=== PATIENT | female | born 2005 | race Caucasian/White ===

== ENCOUNTER 2024-08-16 13:04 | Emergency (ER) | payer OTHER, SELFPAY ==
[2024-08-16 13:08] VITALS: BP 149/61; PULSE 129; RESP 18; TEMP 37.3; O2SAT 95; BMI 50.6
--- NOTE | 2024-08-16 13:32 | CRLHL7_ITS ---
For Patients: As a result of the Century Cures Act, medical imaging exams and procedure reports are released immediately into your electronic medical record. You may view this report before your referring provider. If you have questions, please contact your health care provider. INDICATION: Shortness of breath. TECHNIQUE: Chest 2 views. COMPARISON: None. FINDINGS: Cardiovascular and mediastinum: Heart size is normal. Unremarkable mediastinum. Lungs and pleural spaces: Lungs are clear. No sign of infiltrate or mass. No sign of pleural effusion. No pneumothorax. Bones and soft tissues: No significant findings. IMPRESSION: Negative chest. Dictated by Michael Her MD @ 08/16/2024 2:33:16 PM (Electronically Signed)
--- NOTE | 2024-08-16 13:36 | ED.GENADULT ---
HPI - General Adult General Chief complaint: Fever Stated complaint: fever, migraine, nausea Time Seen by Provider: 08/16/24 13:10 Source: patient Mode of arrival: ambulatory Limitations: no limitations History of Present Illness HPI narrative: 18-year-old female coming in today complaining of fever that started yesterday. States he has gotten as high as 104 and that mtlg-izu-rvlenig medications are not helping. Complains of a headache. Denies appetite changes, sore throat, neck pain, cough, chest pain, abdominal pain, rashes. Denies recent travel or sick contacts. Complains of increased urinary frequency, denies dysuria. Denies diarrhea or constipation. States that she does feel lightheaded. Denies vertiginous symptoms. Related Data Home Medications ?Medication ?Instructions ?Recorded ?Confirmed albuterol sulfate 90 mcg/actuation 1 inh inhalation Q4-6H PRN 08/16/24 08/16/24 aerosol inhaler bupropion HCl 300 mg 24 hr tablet, 300 mg PO DAILY 08/16/24 08/16/24 extended release cholecalciferol (vitamin D3) 25 25 mcg PO DAILY 08/16/24 08/16/24 mcg (1,000 unit) capsule ergocalciferol (vitamin D2) 1,250 50,000 unit PO QWEEK 08/16/24 08/16/24 mcg (50,000 unit) capsule propranolol 80 mg capsule,24 80 mg PO DAILY 08/16/24 08/16/24 hr,extended release sertraline 100 mg tablet 100 mg PO DAILY 08/16/24 08/16/24 trazodone 100 mg tablet 100 mg feeding tube QHS PRN 08/16/24 08/16/24 Allergies Allergy/AdvReac Type Severity Reaction Status Date / Time amphetamine (From Adderall) Allergy Unknown Verified 08/16/24 13:18 dextroamphetamine (From Allergy Unknown Verified 08/16/24 13:18 Adderall) Review of Systems Status of ROS: Reports: 10 or more systems reviewed and unremarkable except as noted in History and below [facility] Social History Smoking Status: Never smoker Do you use any of these nicotine containing products: Vaping Products Second hand tobacco smoke exposure: No How often do you have a drink containing alcohol: never AUDIT-C Alcohol total score: 0 Non-prescribed substance use: denies use Exam Narrative: Exam Narrative: Obese, well-developed patient in no acute distress. Alert and oriented. Answers questions appropriately. Mood and affect are appropriate. Thoughts are goal oriented and rational. No tangential or magical thinking noted. Patient speaks in full sentences without needing to catch her breath. For a virtual 1 2. HEENT: Normocephalic atraumatic. Pupils are equally round reactive to light. Extraocular muscles are intact. Conjunctivae are moist without any icterus noted. Moist mucous membranes. Posterior pharynx is normal. Neck is soft without any lymphadenopathy or thyromegaly. No masses are appreciated. Cardiovascular: Heart is regular rate and rhythm S1 and S2 are present without any murmurs. Lungs: Clear to auscultation bilaterally no wheezes rhonchi or rales are appreciated. Patient takes deep breaths without any discomfort. Abdomen: Soft and nontender nondistended with normal bowel sounds. No guarding or rebound. Difficult to assess for organomegaly secondary to body habitus. Extremities: Bilateral lower extremities are without edema. Skin: Well perfused without any obvious rashes. Const: Vital Signs, click to edit/add: Vital Signs - 24 hr 08/16/24 13:08 Temperature 99.2 F Pulse Rate [Right Pulse Oximeter] 129 H Respiratory Rate 18 Blood Pressure [Ri ght Forearm] 149/61 H Pulse Oximetry 95 Oxygen Delivery Me thod Room Air Course Course ED Course: Given the patient's pulse of 129, IV was established she was given a L of normal saline. No evidence of orthostatic dysfunction. Chest x-ray, read by me, did not show any acute pathology. Patient's pulse did come down after fluids. EKG, read by me, shows normal sinus rhythm with a pulse of 86. Her white cell count was slightly elevated with a WBC of 13.4. Chemistries are unremarkable. Urinalysis grossly positive for signs of infection. COVID and influenza swab is negative. [place] is negative. While in the ED patient received 1 g of IV Rocephin. Vital Signs Vital signs: Initial Vital Signs Temperature 99.2 F 08/16/24 13:08 Temperature Source Temporal Artery Scan 08/16/24 13:08 Pulse Rate 129 H 08/16/24 13:08 Pulse Rhythm Regular 08/16/24 13:08 Pulse Strength 3+ Normal 08/16/24 13:08 Respiratory Rate 18 08/16/24 13:08 Blood Pressure 149/61 H 08/16/24 13:08 Blood Pressure Mean 90 08/16/24 13:08 Blood Pressure Position Sitting 08/16/24 13:08 Pulse Oximetry 95 08/16/24 13:08 Oxygen Delivery Method Room Air 08/16/24 13:08 Vital Signs Temperature 99.2 F 08/16/24 13:08 Pulse Rate 129 H 08/16/24 13:08 Respiratory Rate 18 08/16/24 13:08 Blood Pressure 149/61 H 08/16/24 13:08 Pulse Oximetry 95 08/16/24 13:08 Oxygen Delivery Method Room Air 08/16/24 13:08 Temperature 99.2 F 08/16/24 13:08 Pulse Rate 129 H 08/16/24 13:08 Respiratory Rate 18 08/16/24 13:08 Blood Pressure 149/61 H 08/16/24 13:08 Pulse Oximetry 95 08/16/24 13:08 Oxygen Delivery Method Room Air 08/16/24 13:08 Medications Administered Medications: Discontinued Medications Generic Name Dose Route Start Last Admin Trade Name Freq PRN Reason Stop Dose Admin Sodium Chloride 1,000 mls @ 1,000 mls/hr 08/16/24 13:45 08/16/24 13:53 0.9 % Sodium Chloride 1000 Ml IV 08/16/24 14:44 1,000 mls/hr .Q1H MARY ANN Administration Ceftriaxone Sodium 1 gm/ 100 mls @ 200 mls/hr 08/16/24 15:06 08/16/24 15:13 Sodium Chloride IVPB 08/16/24 15:07 200 mls/hr ONCE ONE Administration Medical Decision Making MDM Narrative Medical decision making narrative: 18-year-old female with urinary tract infection. Status post 1 dose of Rocephin. Will treat with Cipro outpatient. Patient recommended follow-up with her primary care provider this coming week. Lab Data Lab results reviewed: Yes I reviewed the patient's lab results Labs: Lab Results 08/16/24 08/16/24 08/16/24 Range/Units 13:30 13:45 14:36 WBC 13.04 H (4.50-11.00) K/uL RBC 4.31 (4.00-5.20) m/uL Hgb 12.4 (12.0-16.0) gm/dL Hct 37.3 (33.0-51.0) % MCV 87 (80-100) fL MCH 29 (26-34) pg MCHC 33 (32-36) gm/dL RDW Coeff of Mirza 12.8 (11.5-15.5) % Plt Count 228 (140-440) K/uL Neut % (Auto) 76.8 H (42.0-72.0) % Lymph % (Auto) 9.7 L (20-44) % [place] % (Auto) 13.0 H (0.0-11.0) % Eos % (Auto) 0.0 (0.0-7.0) % Baso % (Auto) 0.2 (0.0-3.0) % Neut # (Auto) 10.00 H (1.7-7.0) K/uL Lymph # (Auto) 1.30 (0.90-2.90) K/uL [place] # (Auto) 1.70 H (0.00-0.90) K/UL Eos # (Auto) 0.00 (0.00-0.50) K/uL Baso # (Auto) 0.00 (0.00-0.30) K/uL Abs Immat Gran (auto) 0.00 (0.00-0.30) K/uL Imm/Tot Granulo (auto) 0.3 % Sodium 134 L (135-149) mmol/L Potassium 3.7 (3.6-5.1) mmol/L Chloride 100 (96-114) mmol/L Carbon Dioxide 24 (20-32) mmol/L Anion Gap 10 (7-15) mEq/L BUN 11 (5-24) mg/dL Creatinine 1.0 (0.5-1.5) mg/dL Estimated Creat Clear 100.30 Estimated GFR 83 ml/min Glucose 116 H (60-115) mg/dL Lactate 1.3 (0.5-1.9) mmol/L Calcium 9.1 (8.4-10.6) mg/dL Urine Color Dark yellow (Yellow) Urine Appearance Cloudy A (Clear) Urine pH 7.0 (5.0-8.5) Ur Specific [place] 1.015 (1.000-1.030) Urine Protein 2+ A (Negative) Urine Glucose (UA) Negative (Negative) Urine Ketones Negative (Negative) Urine Blood 2+ A (Negative) Urine Nitrite Negative (Negative) Urine Bilirubin 1+ A (Negative) Urine Urobilinogen >=8.0 A (0.2-1.0) Ur Leukocyte Esterase 3+ A (Negative) Urine RBC 10-25 A (0-2) Urine WBC >100 A (0-5) Ur Squamous Epith Cells None (None-Few) Urine Bacteria Many A (None) Urine HCG, Qual Negative (Negative) SARS-CoV-2 (PCR) Negative SARS-CoV-2 (Negative) Monoscreen Negative (Negative) Influenza Type A (PCR) Negative PCR FLU A (Negative) Influenza Type B (PCR) Negative PCR FLU B (Negative) Imaging Data Chest x-ray: Attestation: I have reviewed the pertinent imaging results. Radiologist's impression: Chest 2 views. COMPARISON: None. FINDINGS: Cardiovascular and mediastinum: Heart size is normal. Unremarkable mediastinum. Lungs and pleural spaces: Lungs are clear. No sign of infiltrate or mass. No sign of pleural effusion. No pneumothorax. Bones and soft tissues: No significant findings. IMPRESSION: Negative chest. ECG Data Attestation: I personally reviewed and interpreted this ECG as follows: Discharge Plan Discharge Clinical Impression: Urinary tract infection Patient Disposition: Home, Self-Care Condition: Stable Additional Instructions: Take all antibiotics as prescribed. Follow-up with your primary care provider in 48-72 hours. Return to the emergency department if you feel like you are getting worse instead of better. Prescriptions: No Action bupropion HCl 300 mg tablet extended release 24 hr 300 mg PO DAILY sertraline 100 mg tablet 100 mg PO DAILY trazodone 100 mg tablet 100 mg feeding tube QHS PRN cholecalciferol (vitamin D3) 25 mcg (1,000 unit) capsule 25 mcg PO DAILY albuterol sulfate 90 mcg/actuation HFA aerosol inhaler 1 inh inhalation Q4-6H PRN ergocalciferol (vitamin D2) 1,250 mcg (50,000 unit) capsule 50,000 unit PO QWEEK propranolol 80 mg capsule,extended release 24 hr 80 mg PO DAILY Follow Up/Referrals: Provider,Not a Local [Primary Care Provider] - Stand Alone Forms: 99Presentsth Info Instructions
[2024-08-16] MEDS: 0.9 % SODIUM CHLORIDE 1000 ml 1,000 ML IV (13:53)
[2024-08-16 13:54] LABS: Lactate* 1.3 mmol/L (0.5-1.9)
[2024-08-16 13:57] LABS: Basophils Percent Auto 0.2 % (0.0-3.0); Hematocrit 37.3 % (33.0-51.0); Hemoglobin* 12.4 gm/dL (12.0-16.0); Immature Granulocytes Pct Auto 0.3 %; Lymphocytes Percent Auto 9.7 % (20-44); Mean Corpuscular HGB Conc 33 gm/dL (32-36); Mean Corpuscular Hemoglobin 29 pg (26-34); Mean Corpuscular Volume 87 fL (80-100); Neutrophils Percent Auto 76.8 % (42.0-72.0); Platelet Count* 228 K/uL (140-440); RDW Coefficient of Variation % 12.8 % (11.5-15.5); Red Blood Count 4.31 m/uL (4.00-5.20); White Blood Count* 13.04 K/uL (4.50-11.00)
[2024-08-16 14:00] LABS: Slide Review Reflex No
[2024-08-16 14:07] LABS: Mono Screen* Negative (Negative)
--- OUTSIDE RECORDS SUMMARY | 2024-08-16 14:10 | XMS_ITS | Encounter Summary ---
Author Organization [facility] Address [address] [place] [address] Care Team Providers Care Farm Facility Manager Name Role Phone Alka Desai APRN, C.N.P., D.N.P. Primary Car e Provider Reason for Referral * Outpatient (Routine) - Authorized Specialty Diagnoses / Procedures Referred By Contac t Referred To Contact Family Medicine Alka Desai APRN, C.N.P., D.N.P. [address] [place] [address] Phone: tel: fax: [facility] Referral ID Status Reason Start Date Expiration Date V isits Requested Visits Authorized [id number] Authorized 08/06/2024 02/05/2026 1 1 Scheduling Instructions Recheck Reason for Visit * Reason Comments Follow-up * Outpatient (Routine) - Closed Specialty Diagnoses / Procedures Referred By Contac t Referred To Contact Family Medicine Alka Desai APRN, C.N.P., D.N.P. [address] [place] [address] Phone: tel: fax: [facility] Region Referral ID Status Reason Start Date Expiration Date Visits Re quested Visits Authorized [id number] Closed 06/30/2024 12/30/2025 1 1 Encounter Details Date Type Department Care Team (Late st Contact Info) Description 08/06/2024 9:00 AM CDT Telemedicine Department of Family Medicine in [place], [place] [address] [place] [address] Alka Desai APRN, C.N.P., D.N.P. [address] [place] [address] Anxiety Generalized Disorder (Primary Dx); Major Depressive Disorder, Recurrent, Unspecified; Insomnia Social History Tobacco Use Types Packs/Day Years Used Date Smoking Tobacco: Never Smokeless Tobacco: Never Alcohol Use Standard Drinks/Week Comments Not Currently 0 (1 standard drink = 0.6 oz pur e alcohol) [facility] Utilities Answer Date Recorded In the past 12 months has e [employer], gas, oil, or water [employer] threatened to shut off services in your home? No 05/18/2024 Overall Financial Resource Strain (CARDIA) Answe r Date Recorded How hard is it for you to pa y for the very basics like food, housing, medical care, and heating? Not hard at all 04/22/2023 PHQ-2 Answer Date Recorded PHQ-2 Score 0 08/06/2024 Exercise Vital Sign Answer Date Recorde d On average, how many days pe r week do you engage in moderate to strenuous exercise (like a brisk walk)? 7 days 05/18/2024 On average, how many minutes do you engage in exercise at this level? 90 min 05/18/2024 Hunger Vital Sign Answer Date Recorded Within the past 12 months, y ou worried that your food would run out before you got the money to buy more. Sometimes true Within the past 12 months, t he food you bought just didn't last and you didn't have money to get more. Sometimes true 10/2024 PRAPARE - Transportation Answer Date Re corded In the past 12 months, has l ack of transportation kept you from medical appointments or from getting medications? No 10/2024 In the past 12 months, has l ack of transportation kept you from meetings, work, or from getting things needed for daily living? No 05/18/2024 Depression Answer Date Recor ded PHQ-9 Total Score (max 27) 1 08/06 Nutrition Answer Date Recorded On average, how many serving s of fruits and vegetables do you eat per day (serving size is equal to 1 cup or approximately the size of a tennis ball)? 0-2 05/18/2024 Dental Answer Date Recorded Dental: Regular Dentist No 04/22/20 23 Employment Answer Date Recorded Employment status Employed and actively working without restrictions 05/18/2024 Housing Stability Answer Date Recorded What is your living situation today? I have a [facility] place to live 05/18/2024 Comments Unknown Sex and Gender Information Value Date Recorded Sex Assigned at Female 04/22/2023 3:38 PM [employer] Legal Sex Female 6:09 AM [employer] MANA[employer]SP[employer]ER Gender Identity Female 04/22/2023 3:38 PM [employer]NA[employer] Sexual Orientation Choose not to disclose 2022 3:38 PM [employer]NA[employer]ING [employer]SP[employer]ER documented as of this encounter Progress Notes * Alka Desai APRN, C.N.P., D.N.P. - 08/06/2024 9:00 AM CDT SUBJECTIVE CHIEF COMPLAINT / REASON FOR VISIT No chief complaint on file. HISTORY OF PRESENT ILLNESS Santosh Clemente is a 18 y.o. female who presents via video visit for follow- up evaluation of depression anxiety symptoms. At our last visit the patient increased her bupropion from 150 milligrams daily to 300 milligrams daily. We maintain the same dose of sertraline at 100 milligrams daily. The patient reports good improvement with her depression and anxiety symptoms. PHQ-9 and keshia seven are as follows: The following screenings were completed: KESHIA-7 Total Score (max 21): 2 PHQ-9 Total Score (max 27): 1 (08/06/24 0857) PHQ-2 Score: 0 She also restarted trazodone as needed at bedtime with an increased dose from 50 milligrams to 100 milligrams by mouth at bedtime as needed. Patient reports the higher dose has lead to better sleep quality. She is otherwise compliant with all of her medications and has no acute complaints today. Consult conducted via real-time audio/video technology by Alka Desai APRN, C.NVeronika, AbdiazizN.PLexie in [facility] to the patient in Patient's Home The following portions of the patient's history were reviewed and updated as appropriate: allergies, current medications, family history, medical history, social history, surgical history and problemlist. PROBLEM LIST: Problem List[1] current medications[2] REVIEW OF SYSTEMS All other systems reviewed and are negative. OBJECTIVE There were no vitals filed for this visit. PHYSICAL EXAMINATION Physical exam is limited due to the nature of video visits. ASSESSMENT / PLAN #1 Anxiety Generalized Disorder #2 Major Depressive Disorder, Recurrent, Unspecified The patient has seen marked improvement with the combination of sertraline and bupropion. Symptoms of depression and anxiety are well controlled. She will continue with bupropion at 300 milligrams daily and sertraline at 100 milligrams daily. Recheck in three months or sooner with any new or worsening symptoms: Family Medicine office visit (clinic); Future; Expected date: 11/06/2024 #3 Insomnia Patient reports improved sleep with the dose increase from trazodone 50 milligrams at night to 100 milligrams at bedtime as needed. She will continue with his current dose. Recheck at visit in three months. Ready to learn, no apparent learning barriers were identified; learning preferences include listening. Explained diagnosis and treatment plan; patient/child/last waxer expressed understanding of the content. [1] Patient Active Problem List Diagnosis Asthma Mild Intermittent (HCC) Edema Leg Multifactorial Anxiety Generalized Disorder Migraine Headache Pain Joint Insomnia Hypertriglyceridemia Deficiency Vitamin D Major Depressive Disorder, Recurrent, Unspecified [2] Current Outpatient Medications Medication Sig albuterol (ProAir HFA) 90 mcg/actuation inhaler Inhale 2 puffs 4 (four) times a day as needed for wheezing. ovhqbxo-rxdyotosspxul-nzmdsrsc (EXCEDRIN MIGRAINE) 250-250-65 mg per tablet Take 1 tablet by mouth every 6 (six) hours as needed for pain. (Patient not taking: Reported on 05/22/2024) buPROPion XL (Wellbutrin XL) 150 mg 24 hr tablet Take 2 tablets (300 mg total) by mouth every morning. cholecalciferol, vitamin D3, (cholecalciferol) 25 mcg (1,000 Unit) tablet Take 1 tablet (25 mcg total) by mouth daily. DME [employer] DME Order [facility] (Patient not taking: Reported on 05/22/2024) ergocalciferol (DrisdoL) 50,000 Unit capsule Take 1 capsule (50,000 Units total) by mouth once a week. mometasone (Asmanex) 220 mcg/ actuation (120) inhaler Inhale 1 puff at bedtime. Rinse mouth with water after use to reduce aftertaste and incidence of candidiasis. Do not swallow. propranoloL (InderaL LA) 80 mg 24 hr capsule Take 1 capsule (80 mg total) by mouth daily. sertraline (Zoloft) 100 mg tablet Take 1 tablet (100 mg total) by mouth daily. Take 1/2 tablet daily for 2 weeks then increase to 1 tablet daily. traZODone (DesyreL) 50 mg tablet Take 2 tablets (100 mg total) by mouth at bedtime as needed for sleep. documented in this encounter Plan of Treatment Upcoming Encounters Date Type Department Care Team (Late st Contact Info) Description 08/26/2024 11:30 AM CDT Appointment Department of Laboratory Medicine in [place], [place] [address] [place] [phone] Alka Desai APRN, C.N.P., D.N.P. [address] [place] [address] 11/11/2024 9:15 AM CDT Comprehensive Visit Department of Sleep Medicine in [place], [place] [address] [place] [id number] Annabel Coronel M.D. [address] [place] [address] 11/12/2024 9:00 AM CDT Telemedicine Department of Family Medicine in [place], [place] [address] [place] [address] [place] [address] Alka Desai APRN, C.N.P., D.N.P. [address] [place] [address] Scheduled Referrals Name Type Priority Associated Diagnoses Orde r Schedule Family Medicine office visit (clinic) Outpatient Referral Routine Expected: 11/06/2024, Expires: 11/06/2025 documented as of this encounter Visit Diagnoses Diagnosis Anxiety Generalized Disorder- Primary Major Depressive Disorder, Recurrent, Unspecified Insomnia documented in this encounter Additional Health Concerns Assessment Noted Time PHQ-9 Depression Total Score: 1 08/07/19 25 8:57 AM CDT documented as of this encounter Care Teams Farm Facility Manager Relationship Specialty Start Date End Date Alka Desai APRN, C.N.P., D.N.P. [address] [place] [address] PCP - General Family Medicine 09/07/20 documented as of this encounter
--- OUTSIDE RECORDS SUMMARY | 2024-08-16 14:10 | XMS_ITS | Clinical Summary ---
Author Organization [facility] Address [address] [place] [address] Care Team Providers Care Hazardous Materials Waste Technician Name Role Phone Alka Desai APRN, C.N.P., D.N.P. Primary Car e Provider Source Comments Patient records contain information from all sites at [facility]. For routine questions regarding patient records, call [phone] during business hours, M-F 8:00 AM - 5:00 PM Central Time. Record requests for emergency care only can be directed to [phone] at any time.[facility] Allergies Active Allergy Reactions Criticality Noted Date Comments Dextroamphetamine-Am phetamine Other (see comments) Medium 07/01/2013 Red blotches on skin Medications * This document contains information received from the source organization and may not represent a complete record from that organization. aspirin-acetaminop hen-caffeine (EXCEDRIN MIGRAINE) 250-250-65 mg per tablet Take 1 tablet by mouth every 6 (six) hours as needed for pain. Active DME Gradient compression garments & suppliesIndication s:Severe Obesity Pediatric Body Mass Index Greater Than Or Equal To 99 Percentile Age 2 Or Older (HCC),Fracture Tibia Shaft Closed Subsequent With Routine Healing Left,Edema Leg Multifactorial DME Order [facility] 3 Units 3 04/20/20 20 Active Additional Information Patient not taking.Reported on 05/22/2024 albuterol (ProAir HFA) 90 mcg/actuation inhalerIndications :Asthma Mild Intermittent (HCC) Inhale 2 puffs 4 (four) times a day as needed for wheezing. 12 g 3 05/22/19 25 Active ergocalciferol (DrisdoL) 50,000 Unit capsuleIndications :Deficiency Vitamin D Take 1 capsule (50,000 Units total) by mouth once a week. 12 capsule 3 05/22/19 25 Active mometasone (Asmanex) 220 mcg/ actuation (120) inhalerIndications :Asthma Mild Intermittent (HCC) Inhale 1 puff at bedtime. Rinse mouth with water after use to reduce aftertaste and incidence of candidiasis. Do not swallow. 1 each 11 05/22/19 25 Active propranoloL (InderaL LA) 80 mg 24 hr capsuleIndications :Migraine Headache Take 1 capsule (80 mg total) by mouth daily. 90 capsule 05/22/19 25 Active sertraline (Zoloft) 100 mg tabletIndications: Depression Anxiety Take 1 tablet (100 mg total) by mouth daily. Take 1/2 tablet daily for 2 weeks then increase to 1 tablet daily. 90 tablet 3 05/22/19 25 026 Active cholecalciferol, vitamin D3, (cholecalciferol) 25 mcg (1,000 Unit) tablet Take 1 tablet (25 mcg total) by mouth daily. 90 tablet 3 05/29/19 25 Active buPROPion XL (Wellbutrin XL) 150 mg 24 hr tabletIndications: Depression Anxiety Take 2 tablets (300 mg total) by mouth every morning. 180 tablet 3 06/30/19 25 026 Active traZODone (DesyreL) 50 mg tabletIndications: Insomnia Take 2 tablets (100 mg total) by mouth at bedtime as needed for sleep. 180 tablet 3 06/30/19 25 026 Active Active Problems Problem Noted Date Diagnosed Date Major Depressive Disorder, Recurrent, Unspecifie d 08/06/2024 Deficiency Vitamin D 05/28/2024 Insomnia 05/25/2024 Hypertriglyceridemia 05/25/2024 Pain Joint 05/18/2023 Migraine Headache 05/26/2020 Edema Leg Multifactorial 04/21/2020 Anxiety Generalized Disorder 04/21/2020 Asthma Mild Intermittent 03/25/2018 Resolved Problems Problem Noted Date Diagnosed Date Resolved Date Mood Disorder 05/26/2020 05/22/2024 Fracture Tibia Shaft Closed Subsequent With Routine Healing Left 09/02/2019 06/29/2020 Severe Obesity Pediatric Bod y Mass Index Greater Than Or Equal To 99 Percentile Age 2 Or Older 2015 05/22/2024 Overview (10/02/2016): Severe Obesity Pediatric (BMI>=99 Percentile Age 2 Or Older) Reactive Attachment Disorder Childhood 2015 05/26/2020 Encounters Date Type Department Care Team Description 08/06/2024 9:00 AM CDT Telemedicine Department of Family Medicine in [place] [address] [address] [facility] [place] [address] Alka Desai, RADHA, C.N.P., D.N.P. Anxiety Generalized Disorder (Primary Dx); Major Depressive Disorder, Recurrent, Unspecified; Insomnia 06/30/2024 4:00 PM CEMENT TRUCK DRIVER Telemedicine Department of Family [facility] in [place] [address] [address] [place] [address] Alka Desai APRN, C.N.P., D.N.P. Depression Anxiety (Primary Dx); Insomnia; Deficiency Vitamin D; Migraine Headache 05/28/2024 Orders Only Department of Family Medicine in [place] [address] [address] [place] [phone] Alka Desai APRN, C.N.P., D.N.P. Deficiency Vitamin D (Primary Dx) 05/22/2024 3:45 PM CEMENT TRUCK DRIVER Comprehensive Visit Department of Family [facility] in [place] [address] [address] [place] [phone] Alka Desai APRN, C.N.P., D.N.P. General Medical Examination Adult (Primary Dx); Asthma Mild Intermittent (HCC); Hypertriglyceridemia ; Depression Anxiety; Deficiency Vitamin D; Insomnia; Migraine Headache; Maintenance Health Adult 05/18/2024 12:56 PM CEMENT TRUCK DRIVER - 05/18/2024 11:59 PM CEMENT TRUCK DRIVER Hospital Encounter Department of Laboratory Medicine in [place] [address] [address] [place] [address] Alka Desai, RADHA, C.N.P., D.N.P. Severe Obesity Pediatric Body Mass Index Greater Than Or Equal To 99 Percentile Age 2 Or Older (HCC); Deficiency Vitamin D Discharge Disposition: Home or Self Care from Last 3 Months Immunizations Immunization Administration Dates Next Due 4vHPV (discontinued) 07/05/2014,03/11/2013,01/08 DTaP (Infanrix, Tripedia) 01/11/2009,07/10/2005 DTaP / Hep B / IPV (Pediarix) 06/30/2004, 004,02/28/2004 H1N1 All Forms 05/25/2009,03/30/2009 HepA Pediatric/Adolescent 01/20/2007,07/10/2005 Hib (PRP-OMP) (PedvaxHIB) 12/28/2004,04/27/2004, 02/28/2004 IPV 01/11/2009 Influenza, Seasonal, Injectable 04/17/2005,03/03 Influenza, Unspecified 02/09/2012,2010,02/21/2010,2008 MCV4 (Menactra)(Discontinued) 05/25/2020, 016 MMR 01/11/2009,04/17/2005 PCV20 05/22/2024 PCV7 (discontinued) 12/28/2004, 5,04/27/2004,2003 SARS-COV-2 (COVID-19) - PFIZ ER (Discontinued)(12 years or older) 01/23/2021,12/28/2020 Tdap 08/29/2015 ELE 01/11/2009,01/11/2009,04/17/2005 influenza trivalent LAIV (Na gabriele) (2 years through 49 years) 02/25/2014,05/11/2013 influenza trivalent vaccine (6 months and older)(PF) 01/29/2008,02/27/2007,05/30/2006,2004 influenza vaccine quad (FLUZONE/FLUARIX) (6 months and older)(PF) 05/25/2020,02/23/2019,03/25/2018 Family History Medical History Relation Name Comments ADD Brother sandy Anxiety disorder Brother sandy Depression Brother sandy ADD Father juan c Anesthesia problems Father juan c Anxiety disorder Father juan c Asthma Father juan c Depression Father juan c Hyperlipidemia Father juan c Obesity Father juan c Smoker Father juan c Coronary artery disease Maternal Grandmother francisca Depression Maternal Grandmother francisca Diabetes Maternal Grandmother francisca Obesity Maternal Grandmother francisca Thyroid disease Maternal Grandmother francisca Asthma Mother jason Depression Mother jason Migraines Mother jason Multiple sclerosis Mother jason Smoker Mother jason ADD Paternal Grandfather annetta Asthma Paternal Grandfather annetta Colon cancer Paternal Grandfather annetta Colon polyps Paternal Grandfather annetta Coronary artery disease Paternal Grandfather annetta Depression Paternal Grandfather annetta Diabetes Paternal Grandfather annetta Hyperlipidemia Paternal Grandfather annetta Hypertension Paternal Grandfather annetta Sleep apnea Paternal Grandfather annetta Skin cancer Paternal Grandmother yara Relation Name Status Comments Brother sandy Alive Father juan c Alive Maternal Grandfather Alive Maternal Grandmother francisca Alive Mother jason Paternal Grandfather annetta Paternal Grandmother yara Social History Tobacco Use Types Packs/Day Years Used Date Smoking Tobacco: Never Smokeless Tobacco: Never Tobacco Cessation:Counseling Given: Yes Alcohol Use Standard Drinks/Week Comments Not Currently 0 (1 standard drink = 0.6 oz pur e alcohol) [facility] Utilities Answer Date Recorded In the past 12 months has [employer] electric, gas, oil, or water [employer] threatened to shut off services in your [...] your living situation today? I have a [facility] place to live 05/18/2024 Comments Unknown Sex and Gender Information Value Date Recorded Sex Assigned at Female 04/22/2023 3:38 PM CEMENT TRUCK DRIVER Legal Sex Female 6:09 AM CEMENT TRUCK DRIVER Gender Identity Female 04/22/2023 3:38 PM CEMENT TRUCK DRIVER Sexual Orientation Choose not to disclose 2022 3:38 PM CEMENT TRUCK DRIVER Last Filed Vital Signs Vital Sign Reading Time Taken Comments Blood Pressure 129/81 05/22/2024 3:30 PM CEMENT TRUCK DRIVER Pulse 95 05/22/2024 3:30 PM CEMENT TRUCK DRIVER Temperature 36.3 C (97.3 F) 03/13/2021 8:19 AM CDT Respiratory Rate 16 05/22/2024 3:30 PM CEMENT TRUCK DRIVER Oxygen Saturation 96% 09/04/2019 8:20 AM CDT Inhaled Oxygen Concentration - - Weight 171 kg (378 lb 1.4 oz) 05/22/2024 3:30 PM CEMENT TRUCK DRIVER Height 180.3 cm (5' 11) 05/22/2024 3:30 PM CEMENT TRUCK DRIVER Body Mass Index 52.73 05/22/2024 3:30 PM CEMENT TRUCK DRIVER Plan of Treatment Upcoming Encounters Date Type Department Care Team (Late st Contact Info) Description 08/26/2024 11:30 AM CDT Appointment Department of Laboratory Medicine in [place], [place] [address] [place], [place] [phone] Alka Desai APRN, C.N.P., D.N.P. [address] [place] [address] 11/11/2024 9:15 AM CDT Comprehensive Visit Department of Sleep Medicine in [place], [place] [address] [facility] [place] [address] Annabel Coronel M.D. [address] [place] [address] 11/12/2024 9:00 AM CDT Telemedicine Department of Family Medicine in [place], [place] [address] [place] [phone] Alka Desai APRN, C.N.P., D.N.P. [address] [place] [address] Health Maintenance Due Date Last Done Comments Hearing Screening during Wel Child Visit 2003 Hepatitis C Screening 2003 1 week Well Child Check-Up 2003 1 month Well Child Check-Up 01/10/2004 2 month Well Child Check-Up 02/11/2004 4 month Well Child Check-Up 03/28/2004 9 month Well Child Check-Up 08/26/2004 15 month Well Child Check-Up 02/25/2005 18 month Well Child Check-Up 05/28/2005 2 year Well Child Check-Up 11/25/2005 30 month Well Child Check-Up 05/28/2006 3 year Well Child Check-Up 11/25/2006 5 year Well Child Check-Up 11/25/2008 6 year Well Child Check-Up 11/25/2009 7 year Well Child Check-Up 11/25/2010 8 year Well Child Check-Up 11/26/2011 10 year Well Child Check-Up 11/25/2013 12 year Well Child Check-Up 11/26/2015 13 year Well Child Check-Up 11/25/2016 15 year Well Child Check-Up 11/25/2018 17 year Well Child Check-Up 11/25/2020 18 year Well Child Check-Up 11/25/2021 Vision Screening during Well Child Visit 03/25/2022 03/25/2018 19 year Well Child Check-Up 11/25/2022 COVID-19 Vaccine (2 5 season) 2024 01/23/2021, 12/28/2020 Influenza Vaccine (#1) 2024 , 02/23/2019, 03/25/2018, Additional history exists TB Screening during Well Chi ld Visit 04/22/2024 04/22/2023 Asthma Control Test Questionnaire 07/03/2024 025 Depression Monitoring (PHQ-9) 12/06/2024 08/06/2024 Lipid (Cholesterol) Screening 05/18/2025, 05/16/2023, 03/25/2018, Additional history exists Asthma Action Plan 05/22/2025 05/22/2024 Asthma Management/Exacerbati on Questionnaire (AMQ/AEQ) 05/22/2025 05/22/2024, 05/16/2023 Tobacco Cessation counseling 05/22/2025 05/22/2024 DTaP,Tdap,and Td Vaccines (7 - Td or Tdap) 08/28/2025 08/29/2015, 01/11/2009, 07/10/2005, Additional history exists Hepatitis B Vaccines Completed 06/30/2004, 04/27/2004, 02/28/2004 IPV Vaccines Completed 01/11/2009, 06/13, 04/27/2004, Additional history exists Varicella Vaccines Completed 01/11/2009, 0 01/11/2009, 04/17/2005 HPV Vaccines Completed 07/05/2014, 02/12, 01/08/2013 14 year Well Child Check-Up Completed 03/25/2018 Meningococcal Vaccine Completed 05/25/2020, 016 Anemia/Iron Deficiency Scree sam During Well Child Visit (if High Risk Menstruating Female) Completed 05/18/2024, 05/16/2023, 05/16/2023, Additional history exists 20 year Well Child Check-Up Completed 05/22/2024 Pneumococcal vaccine (0-49 years) Completed 05/22/2024, 12/28/2004, 06/30/2004, Additional history exists Well Child Check-Up (WCC) Completed Well Child Check-Up Complete d in Past Year Completed 05/22/2024 Depression Monitoring (PHQ-9 for quality tracking) Completed 08/06/2024, 05/22/2024 Medical Devices Implanted Type Area Nurse Specialist Device Identifier Shelf Expiration Date Model / Serial / Lot Nl Tib Exp L Grn Rnd 10.0x360 - Sn/A - [id number] Implanted:Qty : 1 on 09/03/2019 by Rinku Young M.D., Ph.D. at [facility] Hardware e.g. pins/screws/ rods Left: Tibia [employer] Synthes 01/11/2028 04.004.45 2S / N/A / [id number] Sc[address] N[address] St Fthrd Nlck 5.0x30 - [id number] Implanted:Qty : 1 on 09/03/2019 by Rinku Young M.D., Ph.D. at [facility] Hardware e.g. pins/screws/ rods Left: Tibia Dep[employer] Synthes .005.52 0 / / Scrw Lck Manuel Ti Fem 5x8x36 - [id number] Implanted:Qty : 2 on 09/03/2019 by Rinku Young M.D., Ph.D. at [facility] Hardware e.g. pins/screws/ rods Left: Tibia [employer]s 04.005.52 6 / / Scrw Lck Manuel Ti Fem 5x8x40 - [id number] Implanted:Qty : 1 on 09/03/2019 by Rinku Young M.D., Ph.D. at [facility] Hardware e.g. pins/screws/ rods Left: Tibia [employer] S[employer]s 04.005.53 0 / / Explanted Type Area Nurse Specialist Device Identifier Shelf Expiration Date Model / Serial / Lot Scrw Nl St Fthrd Nlck 5.0x56 - [id number] Explanted:Qty : 1 on 09/03/2019 by Rinku Young M.D., Ph.D. at [facility] Hardware e.g. pins/screws/ rods Left: Tibia [employer]s 04.005.54 6 / / Procedures Procedure Name Priority Date/Time Associated Diagnosis Comments VITAMIN D, IMMUNOASSAY, TOTAL, S Routine 05/18/2024 1:05 PM CEMENT TRUCK DRIVER Deficiency Vitamin D HEMOGLOBIN A1C, B Routine 05/18/2024 1:0 5 PM CEMENT TRUCK DRIVER Severe Obesity Pediatric Body Mass Index Greater Than Or Equal To 99 Percentile Age 2 Or Older (HCC) LIPID PANEL, S Routine 05/18/2024 1:05 PM CEMENT TRUCK DRIVER Severe Obesity Pediatric Body Mass Index Greater Than Or Equal To 99 Percentile Age 2 Or Older (HCC) QUANTIFERON-TB GOLD PLUS, B Routine 04/22/2023 4:09 PM CEMENT TRUCK DRIVER Test Blood Tuberculosis from Last 3 Months or Most Recently Relevant to Health Maintenance Results * (ABNORMAL) Lipid Panel (05/18/2024 1:05 PM CEMENT TRUCK DRIVER) Triglycerides 257(H) mg/dL 05/18/2024 4:05 PM CEMENT TRUCK DRIVER [facility] Comment: ----REFERENCE VALUE---- Normal: <150 mg/dL Borderline High: 150-199 mg/dL High: 200-499 mg/dL Very High: > or =500 mg/dL Cholesterol, Total 194 mg/dL 2024 4:05 PM CEMENT TRUCK DRIVER [facility] Comment: ----REFERENCE VALUE---- Desirable: < 200 mg/dL Borderline High: 200 - 239 mg/dL High: > or = 240 mg/dL Cholesterol, LDL, Calculated 113 mg/dL 05/18/2024 4:05 PM CEMENT TRUCK DRIVER [facility] Comment: ----REFERENCE VALUE---- Desirable: <100 mg/dL Above Desirable: 100-129 mg/dL Borderline High: 130-159 mg/dL High: 160-189 mg/dL Very High: >=190 mg/dL ----ADDITIONAL INFORMATION---- LDL cholesterol calculated using the Dorman/NIH equation. Cholesterol, HDL 36(L) >=50 mg/dL 05/18/19 4:05 PM CEMENT TRUCK DRIVER [facility] Cholesterol, Non-HDL, Calculated 158 mg/dL 05/18/2024 4:05 PM CEMENT TRUCK DRIVER TO Comment: ----REFERENCE VALUE---- Desirable: <130 mg/dL Above Desirable: 130-159 mg/dL Borderline High: 160-189 mg/dL High: 190-219 mg/dL Very High: > or =220 mg/dL Fasting (8 HR or more) No 05/18/2024 1:05 PM CEMENT TRUCK DRIVER [facility] Blood (Blood, Venous) 05/18/2024 1:05 PM CEMENT TRUCK DRIVER 05/18/2024 3:38 PM CEMENT TRUCK DRIVER Alka Desai APRN, C.N.P., D.N.P. LAB BLOOD AD D-ON Final Result Performing Organization Address [facility] de Phone Number [facility] [address] [place] [address] * (ABNORMAL) Vitamin D, Immunoassay, Total, Serum (05/18/2024 1:05 PM CEMENT TRUCK DRIVER) Vitamin D, Immunoassay, Total, S 15(L) 20 - 80 ng/mL 05/18/2024 4:15 PM CEMENT TRUCK DRIVER TO Comment: Interpretation: 10-19 ng/mL (mild to moderate deficiency) Optimum levels within the healthy population are 20-50, patients with bone disease may benefit from high levels within this range Blood (Blood, Venous) 05/18/2024 1:05 PM CEMENT TRUCK DRIVER 05/18/2024 3:38 PM CEMENT TRUCK DRIVER Alka Desai APRN, C.N.P., D.N.P. LAB BLOOD AD D-ON Final Result Performing Organization Address [facility] Co de Phone Number [facility] [address] [place] [address] * Hemoglobin A1c (05/18/2024 1:05 PM CEMENT TRUCK DRIVER) Hemoglobin A1c, B 5.4 4.2 - 5.6 % 05/18/2024 4:02 PM CEMENT TRUCK DRIVER [facility] Blood (Blood, Venous) 05/18/2024 1:05 PM CEMENT TRUCK DRIVER 05/18/2024 3:38 PM CEMENT TRUCK DRIVER Alka Desai APRN, C.N.P., D.N.P. LAB BLOOD AD D-ON Final Result [facility] [address] [place] [address], [facility] [place] [address] [place] [address] * QuantiFERON-Tb Gold Plus, Blood (04/22/2023 4:09 PM CEMENT TRUCK DRIVER) Pathologist [facility] QuantiFERON-TB Gold Plus Result Negative Negative 04/26/2023 2:48 PM CEMENT TRUCK DRIVER [facility] Comment: No interferon-gamma response to M. tuberculosis antigens was detected. Latent infection with M. tuberculosis is unlikely. A single negative result does not exclude infection with M. tuberculosis. In patients at high risk for M.tuberculosis infection, a second test should be considered in accordance with the 2017 ATS/IDSA/CDC Clinical Practice Guidelines for Diagnosis of Tuberculosis in Adults and Children [Dennis FU et. al. Clin. Infect. Dis. 2017;64(2):111-115]. The reference range for the 'TB1 Ag minus Nil Result' and 'TB2 Ag minus Nil Result' is an Interferon-gamma level <0.35 IU/mL. TB1 Ag minus Nil Result 0.07 IU/mL 04/26/2023 2:48 PM CEMENT TRUCK DRIVER [facility] TB2 Ag minus Nil Result 0.00 IU/mL 04/26/2023 2:48 PM CEMENT TRUCK DRIVER [facility] Mitogen minus Nil Result >10.00 IU/mL 04/26/2023 2:48 PM CEMENT TRUCK DRIVER [facility] Nil Result 0.03 IU/mL 04/26/2023 2:48 PM CEMENT TRUCK DRIVER [facility] Blood (Blood, Venous) 04/22/2023 4:09 PM CEMENT TRUCK DRIVER 04/23/2023 6:39 PM CEMENT TRUCK DRIVER Narrative [facility] - 04/26/2023 2:48 PM CEMENT TRUCK DRIVER Specimen Information: Specimen ID: [id number] Specimen Type: Blood Specimen Collection Start Date: 04/22/2023 4:09 PM Specimen Received Date: 04/23/2023 6:39 PM Specimen ID: [id number] Specimen Type: Blood Specimen Collection Start Date: 04/22/2023 4:09 PM Specimen Received Date: 04/23/2023 6:39 PM Specimen ID: [id number] Specimen Type: Blood Specimen Collection Start Date: 04/22/2023 4:09 PM Specimen Received Date: 04/23/2023 6:39 PM Specimen ID: [id number] Specimen Type: Blood Specimen Collection Start Date: 04/22/2023 4:09 PM Specimen Received Date: 04/23/2023 6:39 PM Alka Desai APRN, C.N.P., D.N.P. LAB MICROBIO LOGY - BLOOD ORDERABLES Final Result [facility] [address] [place] [address], [facility] in [address] [address] from Last 3 Months or Most Recently Relevant to Health Maintenance Insurance [facility] Advance Directives For more information, please contact: [phone] * Full Code (Latest Code Status on File) Date Activated Date Inactivated Comments 09/03/2019 2:35 PM 09/04/2019 2:57 PM Question Answer Comments Full Code: Discussed * Full Code Date Activated Date Inactivated Comments 09/02/2019 10:21 PM 09/03/2019 2:35 PM Question Answer Comments Full Code: Discussed Care Teams Hazardous Materials Waste Technician Relationship Specialty Start Date End Date lAka Desai APRN, C.N.P., D.N.P. [address] [place] [address] PCP - General Family Medicine 09/07/20
[2024-08-16 14:12] LABS: PCR FLU A Negative PCR FLU A (Negative); PCR FLU B Negative PCR FLU B (Negative); SARS PCR* Negative SARS-CoV-2 (Negative)
[2024-08-16 14:18] LABS: Chloride* 100 mmol/L (96-114); Potassium* 3.7 mmol/L (3.6-5.1); Sodium* 134 mmol/L (135-149)
[2024-08-16 14:21] LABS: Anion Gap 10 mEq/L (7-15); Blood Urea Nitrogen* 11 mg/dL (5-24); Carbon Dioxide* 24 mmol/L (20-32); Estimated Glomerular Filt Rate 83 ml/min
[2024-08-16 14:22] LABS: Calcium* 9.1 mg/dL (8.4-10.6); Glucose* 116 mg/dL (60-115)
[2024-08-16 14:47] LABS: Bilirubin Urine 1+ (Negative); Blood Urine 2+ (Negative); Glucose Urine Negative (Negative); Ketones Urine Negative (Negative); Leukocyte Esterase Urine 3+ (Negative); Nitrite Urine Negative (Negative); Protein Urine 2+ (Negative); Specific Gravity Urine 1.015 (1.000-1.030); Urobilinogen Urine >=8.0 (0.2-1.0)
[2024-08-16 14:49] LABS: Appearance Urine Cloudy (Clear); Color Urine Dark yellow (Yellow); Ur HCG Qualitative* Negative (Negative)
[2024-08-16 14:59] LABS: Bacteria Urine Many; WBC Urine >100 (0-5)
[2024-08-16] MEDS: cefTRIAXone 1 GM in 0.9 % SODIUM CHLORIDE Mini-bag 100 ML IVPB (15:13)
[2024-08-16 15:17] VITALS: BP 133/64; BP 145/88
[2024-08-16 15:19] VITALS: BP 130/82
== END 2024-08-16 15:45 | disposition home or self-care (01) ==
PROVIDERS: Emergency Provider Family Medicine
DX: N39.0 Urinary tract infection, site not specified (principal)
CPT/HCPCS: 36415; 71046; 80048; 81001; 81025; 83605; 85025; 86308; 87086; 87631; 96361; 96374; 99284; J0696; J7030